=== PATIENT | male | born 1940 | race Caucasian/White ===

== ENCOUNTER 2017-08-14 21:49 | Inpatient (IN) | payer OTHER ==
[~2017-08-14] VITALS: Ht 167.6 cm; Wt 85.2 kg
[~2017-08-14 21:49] MED LIST: BEE POLLEN550 MG PO; CIPROFLOXACIN H10 ML BOTH EYES; SIMVASTATIN40 MG PO; UNISOM50 MG PO
[2017-08-15] MEDS ORDERED: FISH OIL 1,0001 EA10 PO (11:29)
[2017-08-15 11:49] VITALS: BP 145/79
[2017-08-15 17:26] LABS: HEMOGLOBIN 13.3 G/DL (12.5-16.6); MCH 31.1 PG (29.0-34.0); MCHC 33.3 G/DL (30.0-36.0); MCV 93.7 FL (86-99); PLATELET COUNT 172 K/uL (156-360); RBC DIS.WIDTH-CV 12.1 % (11.8-14.6); RBC DIS.WIDTH-SD 41.7 % (39-53); RED BLOOD COUNT 4.27 M/uL (4.00-5.50); WHITE BLOOD COUNT 6.3 K/uL (4.1-10.2)
[2017-08-15 19:30] VITALS: BP 156/75
[2017-08-15 20:35] VITALS: BP 156/75
[2017-08-15 23:57] VITALS: BP 120/80
[2017-08-16 04:26] VITALS: BP 122/78
[2017-08-16 07:02] LABS: HEMATOCRIT 40.8 % (38.0-50.0); HEMOGLOBIN 13.4 G/DL (12.5-16.6); MCV 94.9 FL (86-99)
[2017-08-16 07:29] LABS: CHLORIDE 102 MEQ/L (99-109); CREATININE 0.9 MG/DL (0.6-1.3); GFR ESTIMATE (CALCULATED) > 59 mL/min/ (58.99-99999); GLUCOSE 125 mg/dL (70-99); POTASSIUM 4.1 MEQ/L (3.7-5.4); SODIUM 136 MEQ/L (136-147); UREA NITROGEN (BUN) 14 mg/dL (9-23)
[2017-08-16 11:33] VITALS: BP 103/58
[2017-08-16] MEDS ORDERED: LOVENOX40 MG/0.4 SC (12:10)
[2017-08-16] MEDS ORDERED: ENDOCET 5-3251 EACH PO (12:10)
== END 2017-08-16 16:20 | disposition home or self-care (01) | DRG 470 ==
LOC: ENRESERV 21:49 → 2SOUTH 08-15 09:33 → ENRESERV 08-15 17:54 → 3EAST 08-15 19:03
PROVIDERS: Orthopaedic Surgery
PROC: 0SRD0J9 Replacement of Left Knee Joint with Synthetic Substitute, Cemented, Open Approach (ICD-10-PCS; principal; 2017-08-15)
DX: M17.12 Unilateral primary osteoarthritis, left knee (principal); E78.00 Pure hypercholesterolemia, unspecified
CPT/HCPCS: 73560; 80048; 85014; 85018; 85027; C1713; J0690; J1170; J1650; J2250; J2405; J2795; J7050; S0020